=== PATIENT | female | born 1980 | race Caucasian/White ===

== ENCOUNTER 2018-11-07 10:48 | Outpatient (REF) | payer OTHER, SELFPAY ==
[2018-11-07 21:55] LABS: Abs Immature Grans 0.01 k/cumm (0.0-0.09); Absolute Basophil Count 0.01 k/cumm (0.0-0.2); Absolute Eosinophil Count 0.06 k/cumm (0.0-0.7); Absolute Lymphocyte Count 1.91 k/cumm (1.2-3.4); Absolute Monocyte Count 0.33 k/cumm (0.11-0.7); Absolute Neutrophil Count 3.52 k/cumm (1.2-6.7); Basophils % 0.2; HCT 41.6 % (36.0-46.0); HGB 13.8 g/dL (12.0-15.5); Immature Grans % 0.2; Lymphocytes % 32.7; Mean Corp. HGB Concentration 33.2 g/dL (32.0-36.0); Mean Corpuscular Hemoglobin 31.8 pg (27.0-33.0); Mean Corpuscular Volume 95.9 fL (80-95); Mean Platelet Volume 11.5 fL (8.0-11.0); Monocytes % 5.7; Neutrophils % 60.2; Platelet Count 307 x1000/uL (130-400); RBC 4.34 m/cumm (4.00-5.20); White Blood Cell Count 5.84 k/cumm (4.4-10.8)
== END 2018-11-07 11:08 ==
LOC: LBN 10:48
PROVIDERS: PCP Family Medicine; Visit Provider Obstetrics & Gynecology
DX: Z01.812 Encounter for preprocedural laboratory examination (principal)
CPT/HCPCS: 85025

== ENCOUNTER 2020-05-09 13:08 | Outpatient (REF) | payer SELFPAY ==
[2020-05-12 13:12] LABS: SARS-CoV-2 RNA Source Nasal/Nares
[2020-05-12 16:43] LABS: SARS-CoV-2 RNA Not Detected (NotDetected)
== END 2020-05-09 13:28 ==
LOC: NCHCN 13:08
PROVIDERS: PCP Family Medicine; Visit Provider Nurse Practitioner Family
DX: Z20.828 Contact with and (suspected) exposure to other viral communicable diseases (principal)
CPT/HCPCS: U0003

== ENCOUNTER 2020-06-02 20:04 | Outpatient (REF) | payer OTHER, SELFPAY ==
[2020-06-06 18:56] LABS: COVID-19 RT-PCR Result NEGATIVE (Negative)
== END 2020-06-02 20:24 ==
LOC: NCHCN 20:04
PROVIDERS: PCP Family Medicine; Visit Provider Nurse Practitioner Family
DX: Z11.59 Encounter for screening for other viral diseases (principal)
CPT/HCPCS: U0003

== ENCOUNTER 2023-04-07 15:17 | Outpatient (REF) | payer BC, SELFPAY ==
[2023-04-07 21:20] LABS: HCT 42.4 % (36.0-46.0); MCH 31.1 pg (27.0-33.0); MCV 94 fL (80-95); MPV 10.4 fL (8.0-11.0); Platelet Count 422 10^3/uL (130-400); RDW 12.7 % (11.7-14.6); WBC 6.87 10^3/uL (4.4-10.8)
[2023-04-07 21:31] LABS: Iron 86 ug/dL (50-170); Total Iron Binding Capacity 311 ug/dL (250-450); Transferrin Sat 28 % (15-50)
[2023-04-07 21:44] LABS: Ferritin 43 ng/mL (8-252)
[2023-04-13 17:27] LABS: Specimen WB Whole Blood
== END 2023-04-07 15:18 | disposition home or self-care (01) ==
LOC: NCHCN 15:17
PROVIDERS: PCP Family Medicine; Visit Provider Nurse Practitioner Family
DX: Z13.0 Encounter for screening for diseases of the blood and blood-forming organs and certain disorders involving the immune mechanism (principal); Z83.2 Family history of diseases of the blood and blood-forming organs and certain disorders involving the immune mechanism
CPT/HCPCS: 81256; 85027; 82728; 83540; 83550